=== PATIENT | female | born 1940 | race Caucasian/White ===

== ENCOUNTER 2018-08-01 11:39 | Day surgery (SDC) | payer MEDICARE, OTHER ==
[~2018-08-01] VITALS: Ht 170.3 cm; Wt 54.5 kg
[2018-08-01] VITALS (8 sets, daily range): BP systolic 134–156; BP diastolic 63–87; PULSE 79–93
[~2018-08-01 11:39] MED LIST: AMARYL4 MG PO; AMBIEN 10MG10 MG PO; BETAPACE160 MG PO; CALCIUM 600MG+D1 TAB PO; CARDIZEM CD 12120 MG PO; DEXILANT60 MG PO; GLUCOPHAGE500 MG/TAB PO; HCTZ12.5TAB PO; JANUVIA 100MG100 MG PO; MACROBID 1100 MG/CAP PO; MOBIC 7.5MG7.5 MG PO; NORCO 325 MG-51 TAB PO; VASOTEC20 MG PO; XANAX .25M0.25 MG/TA PO; XARELTO15 MG PO
[2018-08-01] MEDS ORDERED: FENT 5ML50 MCG/ML IJ (13:32)
[2018-08-01] MEDS ORDERED: INSULIN HUMA100 U/ML SQ (13:33)
[2018-08-01] MEDS ORDERED: GLUCOPHAGE500 MG/TAB PO (13:34)
[2018-08-01] MEDS ORDERED: CEFTIN 250250 MG/TAB PO (13:35)
[2018-08-01] MEDS ORDERED: COLACE 100100 MG/CAP PO (13:36)
[2018-08-01] MEDS ORDERED: ZOVIRAX400 MG PO (13:37)
[2018-08-01] MEDS ORDERED: DIFLUCAN 100MG100 MG PO (13:41)
[2018-08-01] MEDS ORDERED: PAXIL 20MG20 MG PO (13:41)
[2018-08-01] MEDS ORDERED: MELATONIN5 M1 SL (13:42)
[2018-08-01] MEDS ORDERED: PRILOSEC 20MG20 MG PO (13:43)
[2018-08-01] MEDS ORDERED: ROXICODONE 55 MG/TAB PO (13:44)
--- NOTE | 2018-08-01 14:41 | NUR ---
SEE MERGE FOR MEDICATION ADMIN TIMES AND CONSCIOUS SEDATION INTRA AND POST PROCEDURE DOCUMENTATION/ASSESSMENT
--- NOTE | 2018-08-01 14:55 | NUR ---
PT BACK TO ROOM 10 POST IVC FILTER PLACEMENT. RIGHT GROIN SITE IS C/D/I AND SOFT ON PALPATION. VSS AND AX0X3. PULSES READILY PALPABLE.PT DENIES PAIN AT THIS TIME AND IS CURRENTLY RESTING QUIETLY IN BED.
--- NOTE | 2018-08-01 16:58 | NUR ---
PT VSS AND AX0X3 POST IVC PLACEMENT. SITE REMAINED C/D/I WITH READILY PALPABLE PULSES.DISCHARGE INSTRUCTIONS REVIEWED AND SIGNED. PT WHEELED OUT SAFELY WITH FAMILY BY HER SIDE.
== END 2018-08-01 17:15 | disposition home or self-care (01) ==
LOC: COL.CAR 11:39
DX: I82.4Z1 Acute embolism and thrombosis of unspecified deep veins of right distal lower extremity (principal); Z79.899 Other long term (current) drug therapy; Z85.6 Personal history of leukemia; Z86.718 Personal history of other venous thrombosis and embolism
CPT/HCPCS: J1644; J2250; J3010; J7120; Q9967